=== PATIENT | male | born 1985 | race Caucasian/White ===

== ENCOUNTER 2018-12-13 14:50 | Observation (INO) | payer BC ==
[2018-12-13] MEDS ORDERED: fentaNYL 100 MCG/2 ML SDV IVPUSH ONE (14:55)
[2018-12-13] MEDS ORDERED: Sodium Chloride 0.9% 1,000 ML IV ONE (15:05)
[2018-12-13] MEDS ORDERED: Iopamidol 612 MG/ML 100 ML Bottle IVPUSH ONE (15:25)
[2018-12-13 15:30] LABS: CHLORIDE,CL 105 mmol/L (98-107); SODIUM,NA 141 mmol/L (136-145)
[2018-12-13 15:33] LABS: ANION GAP 13.2 mmol/L (10-20)
--- NOTE | 2018-12-13 16:12 | CR ---
[id number] RAD/RAD Chest PA or AP 1V EXAM: RAD Chest PA or AP 1V INDICATION: TRAUMA COMPARISON: None. DISCUSSION: Cardiomediastinal silhouette is normal in size and contour. No infiltrate, effusion, pneumothorax, or edema. IMPRESSION: No acute cardiopulmonary abnormality. Ish Liang DO 12/13/18 2779 Thank you for allowing us to participate in the care of your patient.
[2018-12-13] MEDS ORDERED: HYDROmorphone 1 MG/ML Syringe IVPUSH ONE (16:15)
--- NOTE | 2018-12-13 16:26 | CT ---
[id number] CT/CT Chest Abdomen Pelvis W IV EXAM: CT Chest Abdomen Pelvis W IV CLINICAL DATA: TRAUMA COMPARISON STUDY: None. FINDINGS: Trace right pneumothorax. Right basilar subsegmental atelectasis The lungs are otherwise clear. No airspace consolidation. No suspicious pulmonary nodules or masses. No pneumomediastinum. No pericardial effusion. No lymphadenopathy. Abdomen and pelvis: Liver, spleen, gallbladder, pancreas, adrenal glands, and kidneys are unremarkable. No evidence of bowel injury, obstruction, or inflammation. Urinary bladder is intact. No lymphadenopathy, free fluid, or pneumoperitoneum. Bones and soft tissues: Minimally displaced fracture of rib 11 on the right posteriorly. IMPRESSION: Minimally displaced fracture of rib 11 on the right posteriorly with a trace right pneumothorax. Findings discussed with ordering provider at time dictation. Ish Liang DO 12/13/18 [id number] Thank you for allowing us to participate in the care of your patient.
--- NOTE | 2018-12-13 16:44 | CR ---
[id number] RAD/RAD Femur Right 2V EXAM: 3 VIEWS RIGHT FEMUR. INDICATION: TRAUMA COMPARISON: None. DISCUSSION: No fracture, dislocation or other osseous abnormality. IMPRESSION: 1. Negative exam. Ish Liang DO 12/13/18 1643 Thank you for allowing us to participate in the care of your patient.
--- NOTE | 2018-12-13 16:45 | CR ---
[id number] RAD/RAD Femur Left 2V EXAM: 3 VIEWS LEFT FEMUR. INDICATION: TRAUMA COMPARISON: None. DISCUSSION: No fracture, dislocation or other osseous abnormality. IMPRESSION: 1. Negative exam. Ish Liang DO 12/13/18 1774 Thank you for allowing us to participate in the care of your patient.
[2018-12-13] MEDS: HYDROmorphone 1 MG/ML Syringe IVPUSH PRN (21:59)
[2018-12-13] MEDS: Acetaminophen/HYDROcodone 325-10 MG Tab PO PRN (22:05)
[2018-12-14] MEDS ORDERED: LORazepam 2 MG/ML SDV IVPUSH ONE (01:08)
--- NOTE | 2018-12-14 02:12 | EDM.PDOC ---
ED HPI GENERAL MEDICAL PROBLEM - General Chief Complaint: Trauma Stated Complaint: INJURED BY A HORSE Time Seen by Provider: 12/13/18 14:50 Source of Information: Reports: Patient, Family - History of Present Illness INITIAL COMMENTS - FREE TEXT/NARRATIVE: Pt. reports that he was riding a horse that fell backward onto him. The horse got up and then stepped on his legs. Denies striking head. No head pain. Denies any neck pain. Patient was made trauma code. Pt. complains of R sided chest pain , and bilateral thigh pain. She was able to ambulate. Denies numbness/tingling in extremities. Pt. denies any abdominal pain. No pelvic pain. Denies any facial trauma. Pt. denies any substernal chest pain pain or shortness of breath. Onset Date: 12/13/18 Location: Reports: Chest, Lower Extremity, Left, Lower Extremity, Right Quality: Reports: Ache, Sharp, Throbbing Worsens with: Reports: Breathing Associated Symptoms: Denies: Chest Pain, Cough, Diaphoresis, Fever/Chills, Headaches, Nausea/Vomiting, Seizure Right Thoracic Pain Score (Numeric/FACES): 7 Right Leg Pain Score (Numeric/FACES): 5 - Related Data Allergies Allergy/AdvReac Type Severity Reaction Status Date / Time No Known Allergies Allergy Verified 12/13/18 14:54 Home Meds: Home Meds . [No Known Home Meds] 12/13/18 [History] Social & Family History - Tobacco Use Smoking Status *Q: Never Smoker Second Hand Smoke Exposure: Yes - Caffeine Use Caffeine Use: Reports: Coffee, Soda - Recreational Drug Use Recreational Drug Use: No ED ROS GENERAL - Review of Systems Review Of Systems: See Below Constitutional: Reports: No Symptoms HEENT: Reports: No Symptoms Respiratory: Reports: Pleuritic Chest Pain. Denies: Shortness of Breath Cardiovascular: Reports: No Symptoms Endocrine: Reports: No Symptoms GI/Abdominal: Reports: No Symptoms. Denies: Abdominal Pain : Reports: No Symptoms Musculoskeletal: Reports: Leg Pain Skin: Reports: No Symptoms Neurological: Reports: No Symptoms Psychiatric: Reports: No Symptoms Hematologic/Lymphatic: Reports: No Symptoms Immunologic: Reports: No Symptoms ED EXAM, GENERAL - Physical Exam Exam: See Below Exam Limited By: No Limitations General Appearance: Alert, WD/WN, No Apparent Distress Eye Exam: Bilateral Eye: EOMI, Normal Fundi, Normal Inspection, PERRL Ears: Normal External Exam, Normal Canal, Hearing Grossly Normal Ear Exam: Bilateral Ear: Auricle Normal, Canal Normal, TM normal Nose: Normal Inspection, Normal Mucosa, No Blood Throat/Mouth: Normal Inspection, Normal Lips, Normal Teeth, Normal Gums, Normal Oropharynx, Normal Voice, No Airway Compromise Head: Atraumatic, Normocephalic Neck: Normal Inspection, Supple, Non-Tender, Full Range of Motion Respiratory/Chest: No Respiratory Distress, Lungs Clear, Normal Breath Sounds, No Accessory Muscle Use, Other (superficial abrasions noted to R lateral and posterior chest) Cardiovascular: Normal Peripheral Pulses, Regular Rate, Rhythm, No Edema, No JVD , No Murmur, No Rub Peripheral Pulses: 4+: Radial (L) GI/Abdominal: Normal Bowel Sounds, Soft, Non-Tender, No Organomegaly, No Distention, No Mass (Male) Exam: Deferred Rectal (Males) Exam: Deferred Back Exam: Normal Inspection, Full Range of Motion Extremities: Normal Inspection, Normal Range of Motion, Non-Tender, No Pedal Edema, Normal Capillary Refill, Other (contusions/abrasions noted to upper legs) Neurological: Alert, Oriented, CN II-XII Intact, Normal Cognition, Normal Gait, Normal Reflexes, No Motor/Sensory Deficits Psychiatric: Normal Affect, Normal Mood Skin Exam: Warm, Dry, Intact, Normal Color, No Rash Lymphatic: No Adenopathy Course - Vital Signs Last Recorded V/S: Last Vital Signs Temp 36.8 C 12/14/18 01:36 Pulse 57 L 12/14/18 01:36 Resp 16 12/14/18 01:36 BP 107/57 L 12/14/18 01:36 Pulse Ox 98 12/14/18 01:36 - Orders/Labs/Meds Orders: Medication Orders Hydrocodone Bitart/Acetaminophen ([place] 325-10 Mg) 1 tab PO Q4H PRN PRN Reason: Pain (moderate 4-6) Last Admin: 12/13/18 22:05 Dose: 1 tab Hydromorphone HCl (Dilaudid) 1 mg IVPUSH Q6H PRN PRN Reason: Pain (severe 7-10) Last Admin: 12/13/18 21:59 Dose: 1 mg Labs: Laboratory Tests 12/13/18 12/13/18 12/13/18 Range/Units 15:00 15:00 15:00 WBC 15.8 H (4.0-10.0) x10^3/uL RBC 5.31 (4.5-6.0) x10^6/uL Hgb 15.8 (14.0-18.0) g/dL Hct 45.3 (40.0-52.0) % MCV 85.3 (78.0-93.0) fL MCH 29.8 (26.0-32.0) pg MCHC 34.9 (32.0-36.0) g/dL RDW Coeff of Kem 12.6 (10.0-15.0) % Plt Count 240 (130-400) x10^3/uL Add Manual Diff Yes Neutrophils % (Manual) 82 H (50-80) % Band Neutrophils % 6 (0-6) % Lymphocytes % (Manual) 5 L (25-50) % Monocytes % (Manual) 6 (2-11) % Eosinophils % (Manual) 1 (0-4) % Hypersegmented Neuts Few H Platelet Estimate Adequate PT 11.0 (10.0-12.8) SEC INR 1.0 L (2.0-3.5) Sodium 141 (136-145) mmol/L Potassium 4.2 (3.5-5.1) mmol/L Chloride 105 (98-107) mmol/L Carbon Dioxide 27 (21-32) mmol/L Anion Gap 13.2 (10-20) mmol/L BUN 16 (7-18) mg/dL Creatinine 1.1 (0.70-1.30) mg/dL Est Cr Clr Drug Dosing TNP Estimated GFR (MDRD) > 60 Glucose 113 H (74-106) mg/dL Calcium 8.6 (8.5-10.1) mg/dL Corrected Calcium 8.44 L (8.5-10.1) mg/dL Total Bilirubin 1.3 H (0.2-1.0) mg/dL AST 38 H (15-37) U/L ALT 49 (16-63) U/L Alkaline Phosphatase 74 (46-116) U/L Total Protein 7.8 (6.4-8.2) g/dL Albumin 4.2 (3.4-5.0) g/dL Globulin 3.6 Albumin/Globulin Ratio 1.17 Urine Color (YELLOW) Urine Appearance (CLEAR) Urine pH (5.0-8.0) Ur Specific [place] Urine Protein (NEGATIVE) mg/dL Urine Glucose (UA) (NEGATIVE) mg/dL Urine Ketones (NEGATIVE) mg/dL Urine Occult Blood (NEGATIVE) Urine Nitrite (NEGATIVE) Urine Bilirubin (NEGATIVE) Urine Urobilinogen (0.2) EU/dL Ur Leukocyte Esterase (NEGATIVE) Urine RBC (NOT SEEN) /HPF Urine WBC (NOT SEEN) /HPF Ur Squamous Epith Cells (NEGATIVE) /HPF Urine Bacteria (NEGATIVE) /HPF Urine Mucus (NEGATIVE) /LPF 12/13/18 Range/Units 15:56 WBC (4.0-10.0) x10^3/uL RBC (4.5-6.0) x10^6/uL Hgb (14.0-18.0) g/dL Hct (40.0-52.0) % MCV (78.0-93.0) fL MCH (26.0-32.0) pg MCHC (32.0-36.0) g/dL RDW Coeff of Kem (10.0-15.0) % Plt Count (130-400) x10^3/uL Add Manual Diff Neutrophils % (Manual) (50-80) % Band Neutrophils % (0-6) % Lymphocytes % (Manual) (25-50) % Monocytes % (Manual) (2-11) % Eosinophils % (Manual) (0-4) % Hypersegmented Neuts Platelet Estimate PT (10.0-12.8) SEC INR (2.0-3.5) Sodium (136-145) mmol/L Potassium (3.5-5.1) mmol/L Chloride (98-107) mmol/L Carbon Dioxide (21-32) mmol/L Anion Gap (10-20) mmol/L BUN (7-18) mg/dL Creatinine (0.70-1.30) mg/dL Est Cr Clr Drug Dosing Estimated GFR (MDRD) Glucose (74-106) mg/dL Calcium (8.5-10.1) mg/dL Corrected Calcium (8.5-10.1) mg/dL Total Bilirubin (0.2-1.0) mg/dL AST (15-37) U/L ALT (16-63) U/L Alkaline Phosphatase (46-116) U/L Total Protein (6.4-8.2) g/dL Albumin (3.4-5.0) g/dL Globulin Albumin/Globulin Ratio Urine Color Dark yellow H (YELLOW) Urine Appearance Slightly cloudy H (CLEAR) Urine pH 5.5 (5.0-8.0) Ur Specific [place] 1.020 Urine Protein 30 H (NEGATIVE) mg/dL Urine Glucose (UA) Negative (NEGATIVE) mg/dL Urine Ketones Negative (NEGATIVE) mg/dL Urine Occult Blood Moderate H (NEGATIVE) Urine Nitrite Negative (NEGATIVE) Urine Bilirubin Negative (NEGATIVE) Urine Urobilinogen 0.2 (0.2) EU/dL Ur Leukocyte Esterase Negative (NEGATIVE) Urine RBC 10-20 H (NOT SEEN) /HPF Urine WBC 0-5 (NOT SEEN) /HPF Ur Squamous Epith Cells Rare (NEGATIVE) /HPF Urine Bacteria Rare (NEGATIVE) /HPF Urine Mucus Moderate H (NEGATIVE) /LPF Meds: Medications Generic Name Dose Route Start Last Admin Trade Name Freq PRN Reason Stop Dose Admin Hydrocodone Bitart/Acetaminophen 1 tab 12/13/18 17:10 12/13/18 22:05 [place] 325-10 Mg PO 1 tab Q4H PRN Administration Pain (moderate 4-6) Hydromorphone HCl 1 mg 12/13/18 17:10 12/13/18 21:59 Dilaudid IVPUSH 1 mg Q6H PRN Administration Pain (severe 7-10) Discontinued Medications Generic Name Dose Route Start Last Admin Trade Name Freq PRN Reason Stop Dose Admin Fentanyl 100 mcg 12/13/18 14:55 12/13/18 18:09 Sublimaze IVPUSH 12/13/18 14:56 Not Given ONETIME ONE Hydromorphone HCl 1 mg 12/13/18 16:15 12/13/18 18:09 Dilaudid IVPUSH 12/13/18 16:16 Not Given ONETIME ONE Sodium Chloride 1,000 mls @ 1,000 mls/hr 12/13/18 15:05 12/13/18 18:09 Normal Saline IV 12/13/18 16:04 Not Given .BOLUS ONE Iopamidol 100 ml 12/13/18 15:25 12/13/18 15:25 Isovue-300 (61%) IVPUSH 12/13/18 15:26 100 ml ONETIME ONE Administration Lorazepam 1 mg 12/14/18 01:08 12/14/18 01:25 Ativan IVPUSH 12/14/18 01:09 1 mg STAT ONE Administration - Radiology Interpretation Free Text/Narrative:: 1 view chest x-ray is negative. Bilateral femur x-rays are negative. CT chest, abdomen, and pelvis was obtained. Very small pneumothorax noted on the R side. Departure - Departure Time of Disposition: 17:00 Disposition: Refer to Observation Clinical Impression: Pneumothorax, Multiple contusions, Thigh abrasion - Discharge Information - Problem List Review Problem List Initiated/Reviewed/Updated: Yes - Assessment/Plan Plan: Discussed findings with Dr. Do, trauma surgeon at [facility]. She advised admitting the patient here and repeating his chest x-ray in the AM. Pt. will be started on norco for pain control. Discussed findings with patient and family. He will be kept on clear liquids for now, in the event that he needs a chest tube.
[2018-12-14 07:24] LABS: CHLORIDE,CL 106 mmol/L (98-107); SODIUM,NA 143 mmol/L (136-145)
[2018-12-14 07:27] LABS: ANION GAP 11.8 mmol/L (10-20)
[2018-12-14] MEDS: HYDROmorphone 1 MG/ML Syringe IVPUSH PRN (07:55)
--- NOTE | 2018-12-14 08:17 | CR ---
[id number] RAD/RAD Chest PA or AP 1V EXAM: RAD Chest PA or AP 1V INDICATION: RECHECK PNEUMOTHORAX. COMPARISON: CT chest abdomen and pelvis December 13, 2018. DISCUSSION: Cardiomediastinal silhouette is normal in size and contour. There appears to be a trace right apical pneumothorax. Low lung volumes associated vascular crowding. No pleural effusion. Left basilar subsegmental atelectasis. IMPRESSION: Trace right apical pneumothorax. Ish Liang DO 12/14/18 0817 Thank you for allowing us to participate in the care of your patient.
[2018-12-14] MEDS: Acetaminophen/HYDROcodone 325-10 MG Tab PO PRN (09:44)
--- NOTE | 2018-12-17 17:34 | PCM.DCSUM1 ---
Discharge Summary - Hospital Course HPI Initial Comments: Pt. was involved in an equine-related multi-system trauma. He was admitted overnight after it was found that the patient had a very small R sided pneumothorax. [facility] trauma surgery was consulted. Pt. was admitted on observation status and his chest x-ray was repeated in the AM to reassess the pneumothorax. There was no change in the size of the pneumothorax. Pt. did not require any chest tube or needle thoracotomy and did not experience any shortness of breath overnight. His only complaint was that of R sided lateral chest discomfort and bilateral thigh pain. He had been eating and drinking adequately. Vitals were all WNL. Denied any lightheadedness, dizziness, neck pain, head pain, or fatigue. Diagnosis: Stroke: No - Discharge Data Discharge Date: 12/14/18 Discharge Disposition: Home, Self-Care 01 Condition: Good - Referral to Home Health Primary Care Physician: PCP None - Discharge Diagnosis/Problem(s) (1) Multiple contusions SNOMED Code(s): 135503569 ICD Code: T07.XXXA - UNSPECIFIED MULTIPLE INJURIES, INITIAL ENCOUNTER Status: Acute (2) Pneumothorax SNOMED Code(s): 73802456 ICD Code: J93.9 - PNEUMOTHORAX, UNSPECIFIED Status: Acute (3) Thigh abrasion SNOMED Code(s): 291677257 ICD Code: S70.319A - ABRASION, UNSPECIFIED THIGH, INITIAL ENCOUNTER Status : Acute - Patient Instructions Diet: Regular Diet as Tolerated Activity: Apply Ice, Cough & Deep Breathe, Elevate Extremity, No Strenuous Activities Driving: Do Not Drive Showering/Bathing: May Shower - Discharge Plan Prescriptions/Med Rec: Acetaminophen/HYDROcodone [[place] 325-10 MG] 1 tab PO Q6H PRN #20 tablet PRN Reason: Pain Home Medications: Home Meds Acetaminophen/HYDROcodone [[place] 325-10 MG] 1 tab PO Q6H PRN #20 tablet [Rx] Forms: ED Department Discharge Referrals: PCP,None [Primary Care Provider] - (Please follow up with your Doctor in 10 days) - Discharge Summary/Plan Comment DC Time >30 min.: Yes Discharge Summary/Plan Comment: Pt. was discharged. Chest x-ray did not reveal any increase in size according to radiologist. Pt. was discharged with [place] 10/325mg every 4-6 hours as needed for pain. Recheck in clinic in 7-10 days. Return to ER if any increased shortness of breath, worsening chest pain, lightheadedness, abdominal or head pain. - General Info Functional Status: Reports: Pain Controlled, Tolerating Diet, Ambulating, Urinating - Review of Systems General: Reports: No Symptoms HEENT: Reports: No Symptoms Pulmonary: Reports: Pleuritic Chest Pain Cardiovascular: Reports: No Symptoms Gastrointestinal: Reports: No Symptoms Genitourinary: Reports: No Symptoms Musculoskeletal: Reports: Leg Pain Skin: Reports: No Symptoms Neurological: Reports: No Symptoms Psychiatric: Reports: No Symptoms - Patient Data Vitals - Most Recent: Last Vital Signs Temp 36.8 C 12/14/18 07:41 Pulse 61 12/14/18 07:41 Resp 16 12/14/18 07:41 BP 112/63 12/14/18 07:41 Pulse Ox 99 12/14/18 07:41 Weight - Most Recent: 53.025 kg Med Orders - Current: Current Medications Discontinued Medications Hydrocodone Bitart/Acetaminophen ([place] 325-10 Mg) 1 tab PO Q4H PRN PRN Reason: Pain (moderate 4-6) Last Admin: 12/14/18 09:44 Dose: 1 tab Fentanyl (Sublimaze) 100 mcg IVPUSH ONETIME ONE Stop: 12/13/18 14:56 Last Admin: 12/13/18 18:09 Dose: Not Given Hydromorphone HCl (Dilaudid) 1 mg IVPUSH ONETIME ONE Stop: 12/13/18 16:16 Last Admin: 12/13/18 18:09 Dose: Not Given Hydromorphone HCl (Dilaudid) 1 mg IVPUSH Q6H PRN PRN Reason: Pain (severe 7-10) Last Admin: 12/14/18 07:55 Dose: 1 mg Sodium Chloride (Normal Saline) 1,000 mls @ 1,000 mls/hr IV .BOLUS ONE Stop: 12/13/18 16:04 Last Admin: 12/13/18 18:09 Dose: Not Given Iopamidol (Isovue-300 (61%)) 100 ml IVPUSH ONETIME ONE Stop: 12/13/18 15:26 Last Admin: 12/13/18 15:25 Dose: 100 ml Lorazepam (Ativan) 1 mg IVPUSH STAT ONE Stop: 12/14/18 01:09 Last Admin: 12/14/18 01:25 Dose: 1 mg - Exam General: Reports: Alert, Oriented HEENT: Reports: Pupils Equal, Pupils Reactive, EOMI, Mucous Membr. Moist/[place] Neck: Reports: Supple Lungs: Reports: Clear to Auscultation, Normal Respiratory Effort, Other (chest wall pain) Cardiovascular: Reports: Regular Rate, Regular Rhythm GI/Abdominal Exam: Normal Bowel Sounds, Soft, Non-Tender, No Organomegaly, No Distention, No Abnormal Bruit, No Mass, Pelvis Stable (Male) Exam: Deferred Rectal (Males) Exam: Deferred Back Exam: Reports: Normal Inspection, Full Range of Motion Extremities: Normal Inspection, Normal Range of Motion, No Pedal Edema, Normal Capillary Refill, Leg Pain, Other (superficial abrasions to thighs) Skin: Reports: Warm, Dry, Intact Neurological: Reports: No New Focal Deficit Psy/Mental Status: Reports: Alert, Normal Affect, Normal Mood
== END 2018-12-14 10:15 | disposition home or self-care (01) ==
LOC: VM.ED 14:50 → VM.MS 16:46 → UNDOADMIN 16:46 → INTOOBSV 16:46
PROVIDERS: ADMIT Physician Assistant; ATTEND Physician Assistant
DX: T07.XXXA Unspecified multiple injuries, initial encounter (principal); J93.9 Pneumothorax, unspecified; S70.312A Abrasion, left thigh, initial encounter; S70.311A Abrasion, right thigh, initial encounter; V80.010A Animal-rider injured by fall from or being thrown from horse in noncollision accident, initial encounter; Y93.52 Activity, horseback riding
CPT/HCPCS: 36415; 71045; 71260; 74177; 80053; 81001; 85025; 85610; 93005; 96361; 96374; 96375; 96376; 99285-25; A9270-GY; G0378; J1170; J2060; J3010; J7030; Q9967